=== PATIENT | male | born 1980 | race Caucasian/White ===

== ENCOUNTER 2017-12-22 13:07 | Inpatient (IN) | payer OTHER ==
[~2017-12-22] VITALS: Ht 172.7 cm; Wt 97.5 kg
[2018-01-02] MEDS ORDERED: LEVSOD75 PO (13:25)
[2018-01-02] MEDS ORDERED: PROP80ER PO (13:25)
[2018-01-02] MEDS ORDERED: NAPR500 PO (13:25)
[2018-01-02] MEDS ORDERED: ALLO100 PO (13:26)
[2018-01-02] MEDS ORDERED: ESCI20 PO (13:26)
[2018-01-02] MEDS ORDERED: Desyrel50 MG PO (13:27)
[2018-01-10 05:40] LABS: BASOPHILS ABSOLUTE AUTO 0.04 K/mm3 (0.00-0.23); BASOPHILS PERCENT AUTO 0 % (0-2); EOSINOPHILS ABSOLUTE AUTO 0.15 K/mm3 (0.00-0.68); EOSINOPHILS PERCENT AUTO 2 % (0-6); Hematocrit 35.1 % (37.0-53.0); Hemoglobin 11.8 g/dL (13.5-17.5); IMMATURE GRAN ABSOLUTE AUTO 0.03 K/mm3 (0.00-0.10); IMMATURE GRAN PERCENT AUTO 0 % (0-1); LYMPHOCYTES ABSOLUTE AUTO 1.52 K/mm3 (0.84-5.20); LYMPHOCYTES PERCENT AUTO 16 % (21-46); MONOCYTES ABSOLUTE AUTO 0.86 K/mm3 (0.16-1.47); MONOCYTES PERCENT AUTO 9 % (4-13); Mean Corpuscular HGB 34.2 pg (26.0-34.0); Mean Corpuscular HGB Conc 33.6 g/dL (31.5-36.5); Mean Platelet Volume 10.4 fL (9.1-12.4); NEUTROPHILS ABSOLUTE AUTO 6.85 K/mm3 (1.96-9.15); NEUTROPHILS PERCENT AUTO 73 % (41-73); Platelet Count 183 K/mm3 (150-400); RDW Coefficient Variation 11.9 % (11.7-14.2); RDW Standard Deviation 44.5 fL (35.1-46.3); Red Blood Cell Count 3.45 M/mm3 (4.30-5.90); White Blood Cell Count 9.45 K/mm3 (4.00-11.30)
[2018-01-10 05:53] LABS: Mean Corpuscular Volume 102 fL (80-100)
[2018-01-10 06:03] LABS: Anion Gap 8 mmol/L (6-16); Blood Urea Nitrogen 9 mg/dL (8-24); Bun/Creatinine Ratio 11.1 (12.0-20.0); CO2, Blood 24 mmol/L (21-32); Calcium, Blood 8.2 mg/dL (8.5-10.1); Chloride, Blood 104 mmol/L (98-108); Creatinine, Blood 0.81 mg/dL (0.60-1.20); Glomerular Filtration Rate >60 (60-); Glucose, Blood 105 mg/dL (70-99); Potassium, Blood 3.9 mmol/L (3.5-5.5); Sodium, Blood 136 mmol/L (136-145)
[2018-01-10] MEDS ORDERED: ASPI325EC PO (09:50)
[2018-01-10] MEDS ORDERED: Percocet 5-3251 EACH PO (09:53)
== END 2018-01-10 14:00 | disposition home or self-care (01) | DRG 470 ==
LOC: SURS 01-09 09:03 → PRE IP 01-09 10:30 → SURS 01-09 14:45
PROVIDERS: Orthopaedic Surgery
PROC: BQ111ZZ Fluoroscopy of Left Hip using Low Osmolar Contrast (ICD-10-PCS; 2018-01-09)
PROC: 0SRB04Z Replacement of Left Hip Joint with Ceramic on Polyethylene Synthetic Substitute, Open Approach (ICD-10-PCS; principal; 2018-01-09 10:30)
DX: M87.052 Idiopathic aseptic necrosis of left femur (principal); I10 Essential (primary) hypertension; M10.9 Gout, unspecified; G89.29 Other chronic pain; M54.9 Dorsalgia, unspecified; Z79.899 Other long term (current) drug therapy
CPT/HCPCS: 36415; 72170; 80048; 85025; 86850; 86900; 86901; 88300; 97110; 97116; 97162; C1776; G8978; G8979; J0171; J0690; J0735; J1885; J2250; J2405; J2795; J7120

== ENCOUNTER 2018-02-13 10:25 | Inpatient (IN) | payer OTHER ==
[~2018-02-13] VITALS: Ht 172.7 cm; Wt 96.6 kg
[~2018-02-13 10:25] MED LIST: ALLO100 PO; ASPI325EC PO; Desyrel50 MG PO; ESCI20 PO; LEVSOD75 PO; NAPR500 PO; PROP80ER PO; Percocet 5-3251 EACH PO
[2018-02-19] MEDS ORDERED: NAPR500 PO (11:32)
[2018-02-21 05:17] LABS: BASOPHILS ABSOLUTE AUTO 0.02 K/mm3 (0.00-0.23); BASOPHILS PERCENT AUTO 0 % (0-2); EOSINOPHILS PERCENT AUTO 0 % (0-6); Hematocrit 35.5 % (37.0-53.0); IMMATURE GRAN ABSOLUTE AUTO 0.07 K/mm3 (0.00-0.10); IMMATURE GRAN PERCENT AUTO 1 % (0-1); LYMPHOCYTES ABSOLUTE AUTO 1.11 K/mm3 (0.84-5.20); LYMPHOCYTES PERCENT AUTO 8 % (21-46); MONOCYTES ABSOLUTE AUTO 1.43 K/mm3 (0.16-1.47); MONOCYTES PERCENT AUTO 10 % (4-13); Mean Corpuscular HGB 33.5 pg (26.0-34.0); Mean Corpuscular HGB Conc 33.8 g/dL (31.5-36.5); Mean Corpuscular Volume 99 fL (80-100); Mean Platelet Volume 9.9 fL (9.1-12.4); NEUTROPHILS ABSOLUTE AUTO 11.37 K/mm3 (1.96-9.15); NEUTROPHILS PERCENT AUTO 81 % (41-73); Platelet Count 255 K/mm3 (150-400); RDW Coefficient Variation 12.1 % (11.7-14.2); RDW Standard Deviation 44.5 fL (35.1-46.3); Red Blood Cell Count 3.58 M/mm3 (4.30-5.90)
[2018-02-21 05:32] LABS: Anion Gap 7 mmol/L (6-16); Blood Urea Nitrogen 12 mg/dL (8-24); Bun/Creatinine Ratio 15.5 (12.0-20.0); CO2, Blood 26 mmol/L (21-32); Calcium, Blood 8.6 mg/dL (8.5-10.1); Chloride, Blood 105 mmol/L (98-108); Creatinine, Blood 0.78 mg/dL (0.60-1.20); Glomerular Filtration Rate >60 (60-); Glucose, Blood 127 mg/dL (70-99); Potassium, Blood 4.6 mmol/L (3.5-5.5); Sodium, Blood 138 mmol/L (136-145)
[2018-02-21] MEDS ORDERED: ASPI325EC PO (08:21)
== END 2018-02-21 09:18 | disposition home or self-care (01) | DRG 470 ==
LOC: SURS 02-20 07:49 → PRE IP 02-20 10:00 → SURS 02-20 14:30
PROVIDERS: Orthopaedic Surgery
PROC: 0SR903Z Replacement of Right Hip Joint with Ceramic Synthetic Substitute, Open Approach (ICD-10-PCS; principal; 2018-02-20 10:00)
DX: M87.051 Idiopathic aseptic necrosis of right femur (principal); M54.9 Dorsalgia, unspecified
CPT/HCPCS: 36415; 72170; 80048; 85025; 86850; 86900; 86901; 88300; 97110; 97116; 97161; C1776; G8978; G8979; G8980; J0171; J0690; J0735; J1100; J1885; J2250; J2405; J2795; J7120